=== PATIENT | female | born 1995 | race Caucasian/White ===

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

== ENCOUNTER 2017-12-31 13:19 | Emergency (ER) | payer MEDICAID ==
[2017-12-31 13:32] VITALS: BP 123/89
--- NOTE | 2017-12-31 14:01 | EDM.PDOC ---
<Skye Dougherty - Last Filed: 12/31/17 13:56> ED HPI GENERAL MEDICAL PROBLEM - General Chief Complaint: Abdominal Pain Stated Complaint: LEFT SIDE PAIN Time Seen by Provider: 12/31/17 13:31 Source of Information: Reports: Patient History Limitations: Reports: No Limitations - History of Present Illness INITIAL COMMENTS - FREE TEXT/NARRATIVE: 22 yo female presents for ongoing LUQ pain. She reports this has been going on for approximately 3 months, described as intermittent sharp pains under the ribcage in the LUQ which radiates to her back and makes her nauseous. She believes the pain is becoming more frequent and more intense, worse with lying flat and after eating. She has not tried any medications to relieve the pain. She has a history of GERD and frequent gastritis and she said this is controlled by avoiding spicy foods. She believes she was supposed to have an upper endoscopy and see a GI specialist but has not made an appointment yet. She reports fever, chills, night sweats and intermittent diarrhea and constipation over the past week as well. She denies any prior abdominal surgeries. Onset: Gradual Duration: Chronic (3 months), Intermittent (becoming more frequent) Location: Reports: Abdomen (LUQ) Quality: Reports: Sharp, Stabbing Severity: Moderate Improves with: Reports: None Worsens with: Reports: Eating, Other (lying flat) Associated Symptoms: Reports: Other (nausea) Left Upper Abdominal Pain Score (Numeric/FACES): 7 Headache Pain Score (Numeric/FACES): 7 - Related Data Allergies Allergy/AdvReac Type Severity Reaction Status Date / Time aspirin Allergy Rash Verified 12/31/17 13:32 Home Meds: Home Meds . 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: Immunologic History: Reports: SLE - Infectious Disease History Infectious Disease History: Reports: Herpes, Other (See Below) Other Infectious Disease History: on acyclovior since 35 weeks Social & Family History - Family History Family Medical History: Noncontributory - Tobacco Use Smoking Status *Q: Never Smoker - Caffeine Use Caffeine Use: Reports: Coffee, Tea Caffeine Use Comment: 2 times per week - Recreational Drug Use Recreational Drug Use: No ED ROS GENERAL - Review of Systems Review Of Systems: See Below Constitutional: Reports: Fever, Chills, Malaise, Night Sweats HEENT: Reports: No Symptoms Respiratory: Reports: No Symptoms. Denies: Shortness of Breath, Cough Cardiovascular: Reports: No Symptoms. Denies: Chest Pain, Edema GI/Abdominal: Reports: Abdominal Pain (LUQ and lower abdominal pain which she attributes to ovarian cysts), Constipation, Diarrhea, Nausea. Denies: Vomiting : Reports: No Symptoms. Denies: Dysuria, Urgency Musculoskeletal: Reports: No Symptoms Skin: Reports: No Symptoms Neurological: Reports: Headache. Denies: Dizziness, Numbness, Tingling Psychiatric: Reports: No Symptoms ED EXAM, GI/ABD - Physical Exam Exam: See Below Exam Limited By: No Limitations General Appearance: Alert, WD/WN, No Apparent Distress Ears: Hearing Grossly Normal Head: Atraumatic, Normocephalic Neck: Supple, Full Range of Motion Respiratory/Chest: No Respiratory Distress, Lungs Clear, Normal Breath Sounds, No Accessory Muscle Use Cardiovascular: Normal Peripheral Pulses, Regular Rate, Rhythm, No Edema, No Gallop, No Murmur GI/Abdominal Exam: Normal Bowel Sounds, Soft, No Distention, Tender (mild tenderness throughout abdomen, worse in the LUQ and epigastric region). No: Guarding, Rebound Neurological: Alert, Oriented, Normal Cognition Psychiatric: Normal Mood, Flat Affect Skin Exam: Warm, Dry, Intact, Normal Color Course - Vital Signs Last Recorded V/S: Last Vital Signs Temp 98.2 F 12/31/17 13:27 Pulse 90 12/31/17 13:27 Resp 16 12/31/17 13:27 BP 123/89 12/31/17 13:27 Pulse Ox 99 12/31/17 13:27 - Orders/Labs/Meds Labs: Laboratory Tests 12/31/17 12/31/17 12/31/17 Range/Units 14:06 14:06 14:06 WBC 8.17 (3.98-10.04) K/mm3 RBC 5.03 (3.98-5.22) M/mm3 Hgb 13.1 (11.2-15.7) gm/L Hct 38.8 (34.1-44.9) % MCV 77.1 L (79.4-94.8) fl MCH 26.0 (25.6-32.2) pg MCHC 33.8 (32.2-35.5) g/dl RDW Std Deviation 40.6 (36.4-46.3) fL Plt Count 423 H (182-369) K/mm3 MPV 9.8 (9.4-12.3) fl Neut % (Auto) 65.8 (34.0-71.1) % Lymph % (Auto) 21.5 (19.3-51.7) % [place] % (Auto) 9.8 (4.7-12.5) % Eos % (Auto) 2.4 (0.7-5.8) Baso % (Auto) 0.4 (0.1-1.2) % Neut # (Auto) 5.37 (1.56-6.13) K/mm3 Lymph # (Auto) 1.76 (1.18-3.74) K/mm3 [place] # (Auto) 0.80 H (0.24-0.36) K/mm3 Eos # (Auto) 0.20 (0.04-0.36) K/mm3 Baso # (Auto) 0.03 (0.01-0.08) K/mm3 Sodium 139 (136-145) mEq/L Potassium 4.0 (3.5-5.1) mEq/L Chloride 103 (98-107) mEq/L Carbon Dioxide 26 (21-32) mEq/L Anion Gap 14.0 (5-15) BUN 9 (7-18) mg/dL Creatinine 0.8 (0.55-1.02) mg/dL Est Cr Clr Drug Dosing 100.94 mL/min Estimated GFR (MDRD) > 60 (>60) mL/min BUN/Creatinine Ratio 11.3 L (14-18) Glucose 109 H (74-106) mg/dL Calcium 9.3 (8.5-10.1) mg/dL Total Bilirubin 0.8 (0.2-1.0) mg/dL AST 28 (15-37) U/L ALT 29 (14-59) U/L Alkaline Phosphatase 161 H (46-116) U/L Total Protein 8.6 H (6.4-8.2) g/dl Albumin 4.1 (3.4-5.0) g/dl Globulin 4.5 gm/dL Albumin/Globulin Ratio 0.9 L (1-2) Lipase 114 (73-393) U/L HCG, Qual Negative (NEGATIVE) Departure - Departure Disposition: Home, Self-Care 01 Clinical Impression: Abdominal pain Qualifiers: Abdominal location: upper abdomen, unspecified Qualified Code(s): R10.10 - Upper abdominal pain, unspecified Gastritis Qualifiers: Gastritis type: unspecified gastritis Chronicity: unspecified Gastritis bleeding: without bleeding Qualified Code(s): K29.70 - Gastritis, unspecified, without bleeding - Discharge Information Referrals: PCP,None [Primary Care Provider] - Forms: ED Department Discharge Additional Instructions: Careful bland diet as tolerated. Pepcid 20 mg twice daily to help reduce acidity of your stomach. Follow up clinic in about 10 to 14 days for recheck. Call [phone] for appt to see one of our [facility] providers. <Les Law L - Last Filed: 12/31/17 14:57> Course - Re-Assessments/Exams Free Text/Narrative Re-Assessment/Exam: 12/31/17 14:56 Patient initially seen by Lacey CARBALLO student. I agree with her hx and exam. I have also examined patient. Labs are good, no acute severe tenderness on exam , mild tenderness upper mid abd. Discharge instr. as documented. Departure - Departure Time of Disposition: 14:47 Condition: Fair
== END 2017-12-31 15:08 | disposition home or self-care (01) ==
LOC: JD.ED 13:19
DX: K29.70 Gastritis, unspecified, without bleeding (principal); Z88.6 Allergy status to analgesic agent
CPT/HCPCS: 36415; 80053; 83690; 84703; 85025; 99283; 99284

== ENCOUNTER 2018-01-25 12:02 | Emergency (ER) | payer SELFPAY ==
[2018-01-25] MEDS ORDERED: Metoclopramide 10 MG/2 ML SDV IVPUSH ONE (12:36)
[2018-01-25] MEDS ORDERED: Acetaminophen 325 MG Tab PO ONE (12:36)
[2018-01-25] MEDS ORDERED: Sodium Chloride 0.9% 10 ML Syringe FLUSH PRN (12:36)
[2018-01-25] MEDS ORDERED: Sodium Chloride 0.9% 500 ML IV ONE (12:36)
[2018-01-25] MEDS ORDERED: Ketorolac 30 MG/ML SDV IVPUSH SCH (12:45)
[2018-01-25 12:56] VITALS: BP 126/77
--- NOTE | 2018-01-25 13:05 | EDM.PDOC ---
ED HPI GENERAL MEDICAL PROBLEM - General Chief Complaint: Headache Stated Complaint: HEADACHE X 4 DAYS Time Seen by Provider: 01/25/18 12:12 Source of Information: Reports: Patient, RN Notes Reviewed - History of Present Illness INITIAL COMMENTS - FREE TEXT/NARRATIVE: Onset R sided and post Reyes 3 or 4 days ago that is not going away. She does get relief with advil but than it comes back. Hx of occasional migraines. No fever , mild nasal levy. but not severe. Occasional mild nausea, not vomiting. No other unusual sx. Last advil was last evening around 15 hrs ago. 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 Denies: Abdominal Pain, Vomiting Musculoskeletal: Denies: Neck Pain, Shoulder Pain, Arm Pain, Back Pain Skin: Reports: No Symptoms Neurological: Reports: Headache. Denies: Numbness, Tingling, Trouble Speaking, Difficulty Walking - Physical Exam Exam: See Below General Appearance: Alert, No Apparent Distress Eye Exam: Bilateral Eye: PERRL Ears: Normal External Exam Nose: Normal Inspection Throat/Mouth: Normal Inspection, Normal Oropharynx Head Exam: Atraumatic. No: Scalp Tenderness, Facial Swelling, Facial Tenderness Neck: Supple, Full Range of Motion Respiratory/Chest: No Respiratory Distress, Lungs Clear, Normal Breath Sounds Cardiovascular: Regular Rate, Rhythm Neuro Exam (Abbreviated): Alert, No Motor/Sensory Deficits Skin Exam: Warm, Dry, Normal Color Course - Vital Signs Last Recorded V/S: Last Vital Signs Temp 98.5 F 01/25/18 12:20 Pulse 77 01/25/18 12:20 Resp 20 01/25/18 12:20 BP 126/77 01/25/18 12:20 Pulse Ox 98 01/25/18 12:20 - Orders/Labs/Meds Orders: Active Orders 24 hr Category Date Time Status Peripheral IV Care [RC] . DIRECTED Care 01/25/18 12:37 Active Ketorolac [Toradol] Med 01/25/18 12:45 Active 30 mg IVPUSH ONETIME Sodium Chloride 0.9% [Saline Flush] Med 01/25/18 12:36 Active 10 ml FLUSH ASDIRECTED PRN Peripheral IV Insertion Adult [OM.PC] Stat Oth 01/25/18 12:36 Ordered Medication Orders Ketorolac Tromethamine (Toradol) 30 mg IVPUSH ONETIME YASSINE Last Admin: 01/25/18 13:06 Dose: 30 mg Sodium Chloride (Saline Flush) 10 ml FLUSH ASDIRECTED PRN PRN Reason: Keep Vein Open Last Admin: 01/25/18 12:59 Dose: 10 ml Meds: Medications Generic Name Dose Route Start Last Admin Trade Name Freq PRN Reason Stop Dose Admin Ketorolac Tromethamine 30 mg 01/25/18 12:45 01/25/18 13:06 Toradol IVPUSH 30 mg ONETIME YASSINE Administration Sodium Chloride 10 ml 01/25/18 12:36 01/25/18 12:59 Saline Flush FLUSH 10 ml ASDIRECTED PRN Administration Keep Vein Open Discontinued Medications Generic Name Dose Route Start Last Admin Trade Name Freq PRN Reason Stop Dose Admin Acetaminophen 975 mg 01/25/18 12:36 01/25/18 12:58 Tylenol PO 01/25/18 12:37 975 mg NOW ONE Administration Sodium Chloride 500 mls @ 999 mls/hr 01/25/18 12:36 01/25/18 12:58 Normal Saline IV 01/25/18 13:06 999 mls/hr .BOLUS ONE Administration Metoclopramide HCl 5 mg 01/25/18 12:36 01/25/18 12:58 Reglan IVPUSH 01/25/18 12:37 5 mg ONETIME ONE Administration - Re-Assessments/Exams Free Text/Narrative Re-Assessment/Exam: 01/25/18 13:44 Reyes is almost gone. Departure - Departure Time of Disposition: 13:32 Disposition: Home, Self-Care 01 Condition: Fair Clinical Impression: Migraine - Discharge Information Instructions: Migraine Headache Referrals: PCP,Not In Area [Primary Care Provider] - Forms: ED Department Discharge Additional Instructions: rest, drink plenty of water to maintain hydration, you may continue advil 2 or 3 times daily if needed for further headache. You may take tylenol or acetaminophen if needed for headache not relieved by advil. Follow up clinic if not back to normal by Saturday. Return to ED as needed if symptoms worsening in any way. - My Orders Last 24 Hours: My Active Orders 01/25/18 12:36 Sodium Chloride 0.9% [Saline Flush] 10 ml FLUSH ASDIRECTED PRN Peripheral IV Insertion Adult [OM.PC] Stat 01/25/18 12:37 Peripheral IV Care [RC] . DIRECTED 01/25/18 12:45 Ketorolac [Toradol] 30 mg IVPUSH ONETIME - Assessment/Plan Last 24 Hours: My Active Orders 01/25/18 12:36 Sodium Chloride 0.9% [Saline Flush] 10 ml FLUSH ASDIRECTED PRN Peripheral IV Insertion Adult [OM.PC] Stat 01/25/18 12:37 Peripheral IV Care [RC] . DIRECTED 01/25/18 12:45 Ketorolac [Toradol] 30 mg IVPUSH ONETIME
== END 2018-01-25 14:05 | disposition home or self-care (01) ==
LOC: JD.ED 12:02
DX: G43.909 Migraine, unspecified, not intractable, without status migrainosus (principal); Z88.6 Allergy status to analgesic agent
CPT/HCPCS: 96361; 96374; 96375; 99284; A9270; J1885; J2765; J7040; J7050